=== PATIENT | male | born 1960 | race Caucasian/White ===

== ENCOUNTER 2016-08-23 15:23 | Inpatient (IN) | payer BC ==
[~2016-08-23] VITALS: Ht 177.8 cm; Wt 98.8 kg
[2016-08-23 16:19] LABS: BASO % 0.6 %; BASO ABS # 0.06 K/uL (0-0.2); COMPLETE YES; EOS % 1.6 %; HEMATOCRIT 44.6 % (42-52); IG% 0.2 %; LYMPH % 17.5 %; LYMPH ABS # 1.65 K/uL (1.2-3.4); MEAN CELL VOLUME 83.7 fL (80-100); MEAN CORPUSCULAR HEMOGLOBIN 29.6 pg (25-34); MEAN CORPUSCULAR HGB CONC 35.4 g/dl (32-36); MEAN PLATELET VOLUME 9.5 fL (7.4-10.4); MONO % 8.5 %; NEUT % 71.6 %; PLATELET COUNT 292 K/uL (130-400); RED BLOOD COUNT 5.33 M/uL (4.7-6.1); WHITE BLOOD COUNT 9.42 K/uL (4.8-10.8)
[2016-08-23] MEDS ORDERED: SODIUM CHLORIDE 0.9% 1000ML 1,000 ML IV ONE (16:22)
[2016-08-23] MEDS ORDERED: SODIUM CHLORIDE 0.9% 1000ML 1,000 ML IV STA (16:22)
--- NOTE | 2016-08-23 16:22 | EMERGENCY ROOM VISIT NOTE ---
History Report prepared by Marjibdanni: Niru Leon Under the Supervision of: Dr. Raúl Chapa M.D. First contact with patient: 16:09 Chief Complaint: CHEST PAIN Stated Complaint: CHEST PAIN RADIATING TO BACK History of Present Illness The patient is a 56 year old male who presents to the Emergency Room with complaints of worsening lower chest pain beginning 5 days prior to arrival. The patient states that last night was the worst the pain has been. He notes the pain radiates down into his upper abdomen and around to his back. The patient has been experiencing belching. The patient denies shortness of breath, fever, cough, swelling to lower extremities, bloody stool, or urinary symptoms. Source of History: patient Onset: 5 days [employer] Position: chest (lower) Timing: worsening Associated Symptoms: + abdominal pain, + back pain, No fevers, No SOB, No urinary symptoms Review of Systems See HPI for pertinent positives & negatives. A total of 10 systems reviewed and were otherwise negative. Past Medical & Surgical Medical Problems: (1) Hypertension Old medical records were reviewed. Nurse's notes were reviewed and I agree with. Family History FH: heart disease FHx: cancer Hypertension Social History Smoking Status: Never Smoker Alcohol Use: occasionally Marital Status: Housing Status: lives with family Occupation Status: employed Current/Historical Medications Scheduled Aspirin (Aspirin Ec), 81 MG PO DAILY Lisinopril (Zestril), 40 MG PO DAILY Scheduled PRN Ibuprofen (Advil), 400-600 MG PO Q6H PRN for Pain Allergies Coded Allergies: Cephalexin (Verified Allergy, Severe, HIVES, 08/23/16) Physical Exam Vital Signs Date Time Temp Pulse Resp B/P (MAP) Pulse Ox O2 Delivery O2 Flow Rate FiO2 08/23/16 19:06 64 18 190/106 97 Room Air 08/23/16 17:23 66 18 190/104 99 Room Air 08/23/16 16:27 71 20 184/106 96 Room Air 08/23/16 16:16 69 08/23/16 15:27 36.6 72 18 99 Room Air Physical Exam General: Well developed well nourished in no acute distress middle aged male, breathing comfortably on room air. Normal speech HEENT: Normal cephalic atraumatic. Pupils are equal round and reactive to light. Sclerae anicteric. Extraocular movements are intact. Oropharynx is pink with moist mucous membranes. No swelling of the mouth lips or tongue. Neck: Supple with a midline trachea. No meningeal signs or stiffness, no JVD or bruits. No Stridor. Chest: Clear to auscultation bilaterally. No wheezes or rhonchi. No increased work of breathing. Heart: regular rate and rhythm. Abdomen: Soft, mild to moderate tenderness to right upper and lower quadrants, nondistended without rebound guarding or rigidity. Extremities: No cyanosis clubbing or edema. No calf tenderness or assymetry Spine/Back. Non tender to palpation. No CVA tenderness Skin: Good turgor without rashes. Neurologic exam: Cranial nerves two through 12 are intact. Motor and sensation are intact and symmetrical throughout. Medical Decision & Procedures ER Provider Diagnostic Interpretation: Radiology results as stated below per my review and radiologist interpretation: SINGLE VIEW CHEST CLINICAL HISTORY: Atypical chest pain. FINDINGS: An AP, portable, upright chest radiograph is obtained. No prior studies are available for comparison at the time of dictation. The examination is degraded by portable technique and patient rotation. The heart is mildly enlarged and there is atherosclerotic calcification of the thoracic aorta. There is prominence of the central pulmonary vessels. There are low lung volumes. No airspace consolidation or large pleural effusion is seen. No pneumothorax is identified. The bony thorax is grossly intact. IMPRESSION: 1. Cardiomegaly with prominence of the central pulmonary vessels. This may be related to low lung volumes. Correlate clinically for evidence of mild congestive change. 2. No airspace consolidation or large pleural effusion is identified. Electronically signed by: Noam Ramírez M.D. 08/23/2016 4:41 PM Dictated Date/Time: 08/23/2016 4:[address] ANGIOGRAM OF THE CHEST COMBO; CT ANGIOGRAM OF THE ABDOMEN AND PELVIS CLINICAL HISTORY: Atypical chest pain. Generalized abdominal pain. COMPARISON STUDY: Chest x-ray dated 08/23/2016. TECHNIQUE: Before and following the IV administration of 115 cc of Optiray 320, CT angiogram of the chest chest is performed from the thoracic inlet to the upper abdomen. CT angiogram of the abdomen and pelvis was performed from the lung bases to the proximal femora. Images are reviewed in the axial, sagittal, and coronal planes. 3-D MIPS images are created and assessed. IV contrast was administered without complication. Automated dose control exposure was utilized. CT DOSE: 1677.08 mGycm FINDINGS: CHEST: Thyroid: Imaged portions of the thyroid gland are normal in size and attenuation. Thoracic aorta: No intramural hematoma is seen on the unenhanced series. The thoracic aorta is normal in course and caliber. The aortic arch demonstrates bovine variant anatomy. No dissection is seen. The arch vessels are widely patent. Pulmonary vasculature: The pulmonary trunk is normal in caliber. There are no filling defects identified in the central pulmonary vessels to indicate pulmonary embolus. Note that this examination was not protocoled for evaluation of the pulmonary arteries. Heart: The heart is mildly enlarged and without pericardial effusion. The coronary arteries are calcified. Lungs and pleural spaces: The lungs and pleural spaces are clear noting dependent atelectasis. The trachea and central airways are patent. Mediastinum: There is no mediastinal lymphadenopathy. Mariah: Clear. Axillae: There is no axillary lymphadenopathy. Bony thorax: No destructive bony lesions are identified. ABDOMEN AND PELVIS: Liver: The contrast-enhanced liver is enlarged, measuring 19.4 cm in length. The liver demonstrates diffusely diminished attenuation consistent with hepatic steatosis. There is no intrahepatic biliary ductal dilatation. The main portal veins appear patent. Gallbladder: Unremarkable. Spleen: Normal in size and attenuation noting heterogeneous arterial phase enhancement. Pancreas: Minimal stranding is suggested around the pancreatic head. The pancreas is otherwise normal in appearance. The gland enhances homogeneously and there is no peripancreatic fluid. Adrenal glands: Unremarkable. Kidneys: The contrast enhanced kidneys are normal in size and without hydronephrosis. The kidneys enhance symmetrically. A subcentimeter cortical hypodensity in the left kidney likely represents a cyst but is too small for definitive characterization. Abdominal aorta and iliac arteries: The abdominal aorta is normal in course and caliber noting mild atherosclerotic calcification. No dissection is seen. The iliac arteries bilaterally are widely patent. Major branches of the abdominal aorta: The celiac trunk, superior mesenteric, and inferior mesenteric arteries are widely patent. A replaced left hepatic artery arises from the left gastric artery. The splenic artery is patent. Single bilateral renal arteries are widely patent. Bowel: The small bowel and colon are normal in course and caliber. The appendix is well-visualized and normal. Peritoneum: There is no intraperitoneal free air or abdominal ascites. There is a small fat-containing umbilical hernia. Lymphadenopathy: None. Pelvic viscera: The prostate gland is mildly enlarged, measuring 5.4 cm in transverse diameter. The bladder and seminal vesicles are normal as imaged. Skeletal structures: No destructive bony lesions are seen. IMPRESSION: 1. There is no aneurysm or dissection seen involving the thoracic or abdominal aorta. 2. Mild cardiomegaly. 3. The lungs are clear. 4. Mild stranding is suggested around the pancreatic head. Correlate clinically and with serum lipase levels for evidence of pancreatitis. The pancreas enhances homogeneously and there is no peripancreatic fluid. 5. Unremarkable CT angiogram of the major branches of the abdominal aorta. 6. Hepatomegaly and hepatic steatosis. 7. Additional findings as above. Electronically signed by: Noam Ramírez M.D. 08/23/2016 6:21 PM Dictated Date/Time: 08/23/2016 6:[address] ANGIOGRAM OF THE CHEST COMBO; CT ANGIOGRAM OF THE ABDOMEN AND PELVIS CLINICAL HISTORY: Atypical chest pain. Generalized abdominal pain. COMPARISON STUDY: Chest x-ray dated 08/23/2016. TECHNIQUE: Before and following the IV administration of 115 cc of Optiray 320, CT angiogram of the chest chest is performed from the thoracic inlet to the upper abdomen. CT angiogram of the abdomen and pelvis was performed from the lung bases to the proximal femora. Images are reviewed in the axial, sagittal, and coronal planes. 3-D MIPS images are created and assessed. IV contrast was administered without complication. Automated dose control exposure was utilized. CT DOSE: 1677.08 mGycm FINDINGS: CHEST: Thyroid: Imaged portions of the thyroid gland are normal in size and attenuation. Thoracic aorta: No intramural hematoma is seen on the unenhanced series. The thoracic aorta is normal in course and caliber. The aortic arch demonstrates bovine variant anatomy. No dissection is seen. The arch vessels are widely patent. Pulmonary vasculature: The pulmonary trunk is normal in caliber. There are no filling defects identified in the central pulmonary vessels to indicate pulmonary embolus. Note that this examination was not protocoled for evaluation of the pulmonary arteries. Heart: The heart is mildly enlarged and without pericardial effusion. The coronary arteries are calcified. Lungs and pleural spaces: The lungs and pleural spaces are clear noting dependent atelectasis. The trachea and central airways are patent. Mediastinum: There is no mediastinal lymphadenopathy. Mariah: Clear. Axillae: There is no axillary lymphadenopathy. Bony thorax: No destructive bony lesions are identified. ABDOMEN AND PELVIS: Liver: The contrast-enhanced liver is enlarged, measuring 19.4 cm in length. The liver demonstrates diffusely diminished attenuation consistent with hepatic steatosis. There is no intrahepatic biliary ductal dilatation. The main portal veins appear patent. Gallbladder: Unremarkable. Spleen: Normal in size and attenuation noting heterogeneous arterial phase enhancement. Pancreas: Minimal stranding is suggested around the pancreatic head. The pancreas is otherwise normal in appearance. The gland enhances homogeneously and there is no peripancreatic fluid. Adrenal glands: Unremarkable. Kidneys: The contrast enhanced kidneys are normal in size and without hydronephrosis. The kidneys enhance symmetrically. A subcentimeter cortical hypodensity in the left kidney likely represents a cyst but is too small for definitive characterization. Abdominal aorta and iliac arteries: The abdominal aorta is normal in course and caliber noting mild atherosclerotic calcification. No dissection is seen. The iliac arteries bilaterally are widely patent. Major branches of the abdominal aorta: The celiac trunk, superior mesenteric, and inferior mesenteric arteries are widely patent. A replaced left hepatic artery arises from the left gastric artery. The splenic artery is patent. Single bilateral renal arteries are widely patent. Bowel: The small bowel and colon are normal in course and caliber. The appendix is well-visualized and normal. Peritoneum: There is no intraperitoneal free air or abdominal ascites. There is a small fat-containing umbilical hernia. Lymphadenopathy: None. Pelvic viscera: The prostate gland is mildly enlarged, measuring 5.4 cm in transverse diameter. The bladder and seminal vesicles are normal as imaged. Skeletal structures: No destructive bony lesions are seen. IMPRESSION: 1. There is no aneurysm or dissection seen involving the thoracic or abdominal aorta. 2. Mild cardiomegaly. 3. The lungs are clear. 4. Mild stranding is suggested around the pancreatic head. Correlate clinically and with serum lipase levels for evidence of pancreatitis. The pancreas enhances homogeneously and there is no peripancreatic fluid. 5. Unremarkable CT angiogram of the major branches of the abdominal aorta. 6. Hepatomegaly and hepatic steatosis. 7. Additional findings as above. Electronically signed by: Noam Ramírez M.D. 08/23/2016 6:21 PM Dictated Date/Time: 08/23/2016 6:09 PM Laboratory Results 08/23/16 15:39 Red Blood Count 5.33, Mean Corpuscular Volume 83.7, Mean Corpuscular Hemoglobin 29.6, Mean Corpuscular Hemoglobin Concent 35.4, Mean Platelet Volume 9.5, Neutrophils (%) (Auto) 71.6, Lymphocytes (%) (Auto) 17.5, Monocytes (%) (Auto) 8.5, Eosinophils (%) (Auto) 1.6, Basophils (%) (Auto) 0.6, Neutrophils # (Auto) 6.74, Lymphocytes # (Auto) 1.65, Monocytes # (Auto) 0.80, Eosinophils # (Auto) 0.15, Basophils # (Auto) 0.06 08/23/16 15:39 Test 08/23/16 15:39 08/23/16 17:20 White Blood Count 9.42 K/uL (4.8-10.8) Red Blood Count 5.33 M/uL (4.7-6.1) Hemoglobin 15.8 g/dL (14.0-18.0) Hematocrit 44.6 % (42-52) Mean Corpuscular Volume 83.7 fL (80-100) Mean Corpuscular Hemoglobin 29.6 pg (25-34) Mean Corpuscular Hemoglobin Concent 35.4 g/dl (32-36) Platelet Count 292 K/uL (130-400) Mean Platelet Volume 9.5 fL (7.4-10.4) Neutrophils (%) (Auto) 71.6 % Lymphocytes (%) (Auto) 17.5 % Monocytes (%) (Auto) 8.5 % Eosinophils (%) (Auto) 1.6 % Basophils (%) (Auto) 0.6 % Neutrophils # (Auto) 6.74 K/uL (1.4-6.5) Lymphocytes # (Auto) 1.65 K/uL (1.2-3.4) Monocytes # (Auto) 0.80 K/uL (0.11-0.59) Eosinophils # (Auto) 0.15 K/uL (0-0.5) Basophils # (Auto) 0.06 K/uL (0-0.2) RDW Standard Deviation 37.6 fL (36.4-46.3) RDW Coefficient of Variation 12.4 % (11.5-14.5) Immature Granulocyte % (Auto) 0.2 % Immature Granulocyte # (Auto) 0.02 K/uL (0.00-0.02) D-Dimer 190 ug/L FEU (0-500) Anion Gap 7.0 mmol/L (3-11) Est Creatinine Clear Calc Drug Dose 96.9 ml/min Estimated GFR () 97.1 Estimated GFR (Non- 83.8 BUN/Creatinine Ratio 11.2 (10-20) Calcium Level 9.1 mg/dl (8.5-10.1) Total Bilirubin 0.7 mg/dl (0.2-1) Aspartate Amino Transf (AST/SGOT) 15 U/L (15-37) Alanine Aminotransferase (ALT/SGPT) 31 U/L (12-78) Alkaline Phosphatase 70 U/L (45-117) Troponin I < 0.015 ng/ml (0-0.045) Total Protein 7.3 gm/dl (6.4-8.2) Albumin 3.8 gm/dl (3.4-5.0) Globulin 3.5 gm/dl (2.5-4.0) Albumin/Globulin Ratio 1.1 (0.9-2) Lipase 546 U/L (73-393) Urine Color YELLOW Urine Appearance CLEAR (CLEAR) Urine pH 8.0 (4.5-7.5) Urine Specific [place] 1.009 (1.000-1.030) Urine Protein NEG (NEG) Urine Glucose (UA) NEG (NEG) Urine Ketones NEG (NEG) Urine Occult Blood NEG (NEG) Urine Nitrite NEG (NEG) Urine Bilirubin NEG (NEG) Urine Urobilinogen NEG (NEG) Urine Leukocyte Esterase NEG (NEG) Laboratory studies as stated above per my review. Medications Administered Medications (Trade) Dose Ordered Sig/Kareen Route Start Time Stop Time Status Last Admin Dose Admin Sodium Chloride 1,000 ml @ 999 mls/hr Q1H1M STAT IV 08/23/16 16:22 08/23/16 17:22 DC 08/23/16 16:22 999 MLS/HR Sodium Chloride 1,000 ml @ 200 mls/hr Q5H ONCE IV 08/23/16 16:22 08/23/16 21:21 08/23/16 16:22 200 MLS/HR ECG Indication: chest pain Rate (beats per minute): 70 Rhythm: normal sinus Findings: no acute ischemic change, no ectopy Comparison ECG Date: no prior available ED Course 1614: Past medical records reviewed. The patient was evaluated in room A10, and a complete history and physical examination were performed. 1622: Sodium Chloride 1,000 ml @ 200 mls/hr IV, Sodium Chloride 1,000 ml @ 999 mls/hr IV. 1723: The patient declined pain medication. 1843: I reevaluated the patient and talked at length with the patient and his family about treatment plan. 192: I spoke to Dr. Joao NICHOLSON about the patient. Dr. Joao NICHOLSON will evaluate the patient for further treatment and management. 192: Upon reevaluation, the patient is hemodynamically stable. I discussed the results and treatment plan with the patient. He verbalized agreement of the treatment plan. The patient will be evaluated for further management. Medical Decision Differentials include, but are not limited to; acute coronary syndrome, arrhythmia, infection, electrolyte or metabolic abnormalities. Medication Reconciliation: I attest that I have personally reviewed the patient' s current medication list. Blood Pressure Screening: Patient was found to have a slightly elevated blood pressure due to circumstances. I do not believe that the patient requires hypertension monitoring. This patient comes in as described above he has lower chest/epigastric pain has been going on for a couple days nothing seems to make it better or worse she does appear to be mildly uncomfortable is pacing intermittently however he declines any pain medication. IV access established EKG and multiple blood testing was obtained. He was hydrated IV normal saline. EKG does not suggest acute coronary syndrome or arrhythmia. He has no significant electrolyte or metabolic abnormalities. His lipase is mildly elevated at 595. His blood pressure was elevated while he was here, some of this I think is likely related pain distress. I did a CT angios chest and abdomen to rule out aortic and other pathology. There is no evidence of aortic dissection or aneurysm. There is questionable findings for mild pancreatitis. No other findings seen acutely. Gallbladder appears normal. He has no elevation of LFTs. This may be from a mild pancreatitis of uncertain etiology at this point. I talked the patient length to the strong family cardiac history thus far cardiac work up was unremarkable but a do think he needs to have further workup from a cardiac standpoint and also a GI standpoint. I have consulted the [facility] hospitalist to see him in the emergency department. Consults Time Called: 1916 Consulting Physician: Dr. Joao NICHOLSON Returned Call: [address] Joao NICHOLSON about the patient. Dr. Joao NICHOLSON will evaluate the patient for further treatment and management. Impression Primary Impression: Chest pain Additional Impressions: Epigastric abdominal pain Pancreatitis Scribe Attestation The scribe's documentation has been prepared under my direction and personally reviewed by me in its entirety. I confirm that the note above accurately reflects all work, treatment, procedures, and medical decision making performed by me. Departure Information Dispostion Being Evaluated By Hospitalist Iftikhar Rucker MD (PCP) Problem Qualifiers
[2016-08-23 16:27] LABS: ALT/SGPT 31 U/L (12-78); BLOOD UREA NITROGEN 11 mg/dl (7-18); BUN/CREATININE RATIO 11.2 (10-20); CALCIUM 9.1 mg/dl (8.5-10.1); CARBON DIOXIDE 27 mmol/L (21-32); CHLORIDE 107 mmol/L (98-107); GLUCOSE 84 mg/dl (70-99); POTASSIUM 3.6 mmol/L (3.5-5.1); SODIUM 141 mmol/L (136-145)
[2016-08-23 16:32] LABS: ALB/GLOB RATIO 1.1 (0.9-2); ALKALINE PHOSPHATASE 70 U/L (45-117); AST/SGOT 15 U/L (15-37)
[2016-08-23] MEDS ORDERED: IBUP-1050 PO (16:38)
[2016-08-23] MEDS ORDERED: ASPI81TA28 PO (16:38)
[2016-08-23] MEDS ORDERED: LISI40TA PO (16:38)
--- NOTE | 2016-08-23 16:43 | DIAGNOSTIC IMAGING REPORT ---
SINGLE VIEW CHEST CLINICAL HISTORY: Atypical chest pain. FINDINGS: An AP, portable, upright chest radiograph is obtained. No prior studies are available for comparison at the time of dictation. The examination is degraded by portable technique and patient rotation. The heart is mildly enlarged and there is atherosclerotic calcification of the thoracic aorta. There is prominence of the central pulmonary vessels. There are low lung volumes. No airspace consolidation or large pleural effusion is seen. No pneumothorax is identified. The bony thorax is grossly intact. IMPRESSION: 1. Cardiomegaly with prominence of the central pulmonary vessels. This may be related to low lung volumes. Correlate clinically for evidence of mild congestive change. 2. No airspace consolidation or large pleural effusion is identified. Electronically signed by: Noam Ramírez M.D. 08/23/2016 4:41 PM Dictated Date/Time: 08/23/2016 4:40 PM
[2016-08-23] MEDS ORDERED: OPTIRAY 320 IV PRN (18:00)
--- NOTE | 2016-08-23 18:23 | DIAGNOSTIC IMAGING REPORT ---
CT ANGIOGRAM OF THE CHEST COMBO; CT ANGIOGRAM OF THE ABDOMEN AND PELVIS CLINICAL HISTORY: Atypical chest pain. Generalized abdominal pain. COMPARISON STUDY: Chest x-ray dated 08/23/2016. TECHNIQUE: Before and following the IV administration of 115 cc of Optiray 320, CT angiogram of the chest chest is performed from the thoracic inlet to the upper abdomen. CT angiogram of the abdomen and pelvis was performed from the lung bases to the proximal femora. Images are reviewed in the axial, sagittal, and coronal planes. 3-D MIPS images are created and assessed. IV contrast was administered without complication. Automated dose control exposure was utilized. CT DOSE: 1677.08 mGycm FINDINGS: CHEST: Thyroid: Imaged portions of the thyroid gland are normal in size and attenuation. Thoracic aorta: No intramural hematoma is seen on the unenhanced series. The thoracic aorta is normal in course and caliber. The aortic arch demonstrates bovine variant anatomy. No dissection is seen. The arch vessels are widely patent. Pulmonary vasculature: The pulmonary trunk is normal in caliber. There are no filling defects identified in the central pulmonary vessels to indicate pulmonary embolus. Note that this examination was not protocoled for evaluation of the pulmonary arteries. Heart: The heart is mildly enlarged and without pericardial effusion. The coronary arteries are calcified. Lungs and pleural spaces: The lungs and pleural spaces are clear noting dependent atelectasis. The trachea and central airways are patent. Mediastinum: There is no mediastinal lymphadenopathy. Mariah: Clear. Axillae: There is no axillary lymphadenopathy. Bony thorax: No destructive bony lesions are identified. ABDOMEN AND PELVIS: Liver: The contrast-enhanced liver is enlarged, measuring 19.4 cm in length. The liver demonstrates diffusely diminished attenuation consistent with hepatic steatosis. There is no intrahepatic biliary ductal dilatation. The main portal veins appear patent. Gallbladder: Unremarkable. Spleen: Normal in size and attenuation noting heterogeneous arterial phase enhancement. Pancreas: Minimal stranding is suggested around the pancreatic head. The pancreas is otherwise normal in appearance. The gland enhances homogeneously and there is no peripancreatic fluid. Adrenal glands: Unremarkable. Kidneys: The contrast enhanced kidneys are normal in size and without hydronephrosis. The kidneys enhance symmetrically. A subcentimeter cortical hypodensity in the left kidney likely represents a cyst but is too small for definitive characterization. Abdominal aorta and iliac arteries: The abdominal aorta is normal in course and caliber noting mild atherosclerotic calcification. No dissection is seen. The iliac arteries bilaterally are widely patent. Major branches of the abdominal aorta: The celiac trunk, superior mesenteric, and inferior mesenteric arteries are widely patent. A replaced left hepatic artery arises from the left gastric artery. The splenic artery is patent. Single bilateral renal arteries are widely patent. Bowel: The small bowel and colon are normal in course and caliber. The appendix is well-visualized and normal. Peritoneum: There is no intraperitoneal free air or abdominal ascites. There is a small fat-containing umbilical hernia. Lymphadenopathy: None. Pelvic viscera: The prostate gland is mildly enlarged, measuring 5.4 cm in transverse diameter. The bladder and seminal vesicles are normal as imaged. Skeletal structures: No destructive bony lesions are seen. IMPRESSION: 1. There is no aneurysm or dissection seen involving the thoracic or abdominal aorta. 2. Mild cardiomegaly. 3. The lungs are clear. 4. Mild stranding is suggested around the pancreatic head. Correlate clinically and with serum lipase levels for evidence of pancreatitis. The pancreas enhances homogeneously and there is no peripancreatic fluid. 5. Unremarkable CT angiogram of the major branches of the abdominal aorta. 6. Hepatomegaly and hepatic steatosis. 7. Additional findings as above. Electronically signed by: Noam Ramírez M.D. 08/23/2016 6:21 PM Dictated Date/Time: 08/23/2016 6:09 PM
[2016-08-23 18:40] LABS: URINE APPEARANCE CLEAR (CLEAR); URINE BILIRUBIN NEG (NEG); URINE COLOR YELLOW; URINE NITRITE NEG (NEG); URINE SPECIFIC GRAVITY 1.009 (1.000-1.030); UROBILINOGEN NEG (NEG); ZZUR CULT IF INDIC CLEAN CATCH NO
[2016-08-23 18:50] LABS: MANUAL MICROSCOPIC REQUIRED? NO; REVIEW REQ? NO
[2016-08-23] MEDS ORDERED: ALUMINUM/MAGNESIUM/SIMETH (MAALOX MAX) 30 ML UDC PO PRN (20:30)
[2016-08-23] MEDS ORDERED: POLYETHYLENE (MIRALAX) 17 GM PACK PO PRN (20:30)
[2016-08-23] MEDS ORDERED: ZOLPIDEM TARTRATE 5 MG TAB PO PRN (20:30)
[2016-08-23] MEDS ORDERED: ONDANSETRON INJ 2 MG/ML 2 ML VIAL IV PRN (20:30)
[2016-08-23] MEDS ORDERED: MAGNESIUM HYDROXIDE SUSP 30 ML UDC PO PRN (20:30)
[2016-08-23] MEDS ORDERED: HYDROmorphone INJ 0.5 MG/0.5 ML SYR IV PRN (20:30)
--- NOTE | 2016-08-23 20:56 | History and Physical ---
History & Physical Date & Time of Service: Aug 23, 2016 at 20:12 Chief Complaint: Chest Pain Radiating To Back Primary Care Physician: Iftikhar Chand MD History of Present Illness Source: patient 56 y/o M Hx HTN. Pt developed abdominal pain banding across his upper quadrants and radiating to his back. He describes nausea without vomiting. Denies CP, SOB, diaphoresis. A CT angiogram was obtained in the ER to rule out dissection. No dissection was apparent however there is stranding around the pancreatic head which is conssitent with acute pancreatitis. The pts lipase in addition is elevated. Past Medical/Surgical History Medical Problems: (1) Hypertension Status: Chronic Family History FH: heart disease FHx: cancer Hypertension Father age 53 owing to an [place] Mother due to Colon CA Social History Pt has 1-2 beers HS, he limits his calorie intake and is active within his job. He owns a [employer]. He does not smoke Smoking Status: Never Smoker Marital Status: Occupational Status: employed Allergies Coded Allergies: Cephalexin (Verified Allergy, Severe, HIVES, 08/23/16) Home Medications Scheduled Aspirin (Aspirin Ec), 81 MG PO DAILY Lisinopril (Zestril), 40 MG PO DAILY Scheduled PRN Ibuprofen (Advil), 400-600 MG PO Q6H PRN for Pain Review of Systems Constitutional: No fever, No chills, No sweats Eyes: No worsening of vision ENT: No hearing loss, No unusual epistaxis, No nasal symptoms Respiratory: No cough, No sputum, No wheezing Cardiovascular: No chest pain, No orthopnea, No PND Abdomen: + pain, + nausea, No vomiting, No diarrhea, No constipation Musculoskeletal: No joint pain Genitourinary - Male: No hematuria, No dysuria, No urinary frequency Neurologic: No memory loss, No paralysis, No weakness Psychiatric: No depression symptoms Endocrine: No fatigue Hematologic / Lymphatic: No abnormal bleeding/bruising Integumentary: No rash Allergic / Immunologic: No environmental allergies Physical Exam Vital Signs Date Time Temp Pulse Resp B/P (MAP) Pulse Ox O2 Delivery O2 Flow Rate FiO2 08/23/16 19:06 64 18 190/106 97 Room Air 08/23/16 17:23 66 18 190/104 99 Room Air 08/23/16 16:27 71 20 184/106 96 Room Air 08/23/16 16:16 69 08/23/16 15:27 36.6 72 18 99 Room Air General Appearance: WD/WN, no apparent distress Head: normocephalic Eyes: normal inspection ENT: normal ENT inspection Neck: supple, no JVD Respiratory/Chest: chest non-tender, lungs clear, normal breath sounds Cardiovascular: regular rate, rhythm, no edema, no gallop, no JVD, no murmur, normal peripheral pulses Abdomen/GI: normal bowel sounds, soft, + tenderness Back: normal inspection, no CVA tenderness Extremities/Musculoskelatal: normal inspection, no calf tenderness, normal capillary refill, no pedal edema, normal range of motion Neurologic/Psych: town [place] II-XII nml as tested, no motor/sensory deficits, alert Skin: normal color, warm/dry, no rash Diagnostics Laboratory Results Results Past 24 Hours Test 08/23/16 15:39 08/23/16 17:20 Range/Units White Blood Count 9.42 4.8-10.8 K/uL Red Blood Count 5.33 4.7-6.1 M/uL Hemoglobin 15.8 14.0-18.0 g/dL Hematocrit 44.6 42-52 % Mean Corpuscular Volume 83.7 80-100 fL Mean Corpuscular Hemoglobin 29.6 25-34 pg Mean Corpuscular Hemoglobin Concent 35.4 32-36 g/dl Platelet Count 292 130-400 K/uL Mean Platelet Volume 9.5 7.4-10.4 fL Neutrophils (%) (Auto) 71.6 % Lymphocytes (%) (Auto) 17.5 % Monocytes (%) (Auto) 8.5 % Eosinophils (%) (Auto) 1.6 % Basophils (%) (Auto) 0.6 % Neutrophils # (Auto) 6.74 1.4-6.5 K/uL Lymphocytes # (Auto) 1.65 1.2-3.4 K/uL Monocytes # (Auto) 0.80 0.11-0.59 K/uL Eosinophils # (Auto) 0.15 0-0.5 K/uL Basophils # (Auto) 0.06 0-0.2 K/uL RDW Standard Deviation 37.6 36.4-46.3 fL RDW Coefficient of Variation 12.4 11.5-14.5 % Immature Granulocyte % (Auto) 0.2 % Immature Granulocyte # (Auto) 0.02 0.00-0.02 K/uL D-Dimer 190 0-500 ug/L FEU Sodium Level 141 136-145 mmol/L Potassium Level 3.6 3.5-5.1 mmol/L Chloride Level 107 98-107 mmol/L Carbon Dioxide Level 27 21-32 mmol/L Anion Gap 7.0 3-11 mmol/L Blood Urea Nitrogen 11 7-18 mg/dl Creatinine 1.00 0.60-1.40 mg/dl Est Creatinine Clear Calc Drug Dose 96.9 ml/min Estimated GFR () 97.1 Estimated GFR (Non- 83.8 BUN/Creatinine Ratio 11.2 10-20 Random Glucose 84 70-99 mg/dl Calcium Level 9.1 8.5-10.1 mg/dl Total Bilirubin 0.7 0.2-1 mg/dl Aspartate Amino Transf (AST/SGOT) 15 15-37 U/L Alanine Aminotransferase (ALT/SGPT) 31 12-78 U/L Alkaline Phosphatase 70 45-117 U/L Troponin I < 0.015 0-0.045 ng/ml Total Protein 7.3 6.4-8.2 gm/dl Albumin 3.8 3.4-5.0 gm/dl Globulin 3.5 2.5-4.0 gm/dl Albumin/Globulin Ratio 1.1 0.9-2 Lipase 546 73-393 U/L Urine Color YELLOW Urine Appearance CLEAR CLEAR Urine pH 8.0 4.5-7.5 Urine Specific [place] 1.009 1.000-1.030 Urine Protein NEG NEG Urine Glucose (UA) NEG NEG Urine Ketones NEG NEG Urine Occult Blood NEG NEG Urine Nitrite NEG NEG Urine Bilirubin NEG NEG Urine Urobilinogen NEG NEG Urine Leukocyte Esterase NEG NEG Diagnostic Radiology CT angio - dissection study 1. There is no aneurysm or dissection seen involving the thoracic or abdominal aorta. 2. Mild cardiomegaly. 3. The lungs are clear. 4. Mild stranding is suggested around the pancreatic head. Correlate clinically and with serum lipase levels for evidence of pancreatitis. The pancreas enhances homogeneously and there is no peripancreatic fluid. 5. Unremarkable CT angiogram of the major branches of the abdominal aorta. 6. Hepatomegaly and hepatic steatosis. EKG NSR Normal EKG Impression Assessment and Plan 56 y/o M Hx HTN. Pt developed abdominal pain banding across his upper quadrants and radiating to his back. He describes nausea without vomiting. Denies CP, SOB, diaphoresis. A CT angiogram was obtained in the ER to rule out dissection. No dissection was apparent however there is stranding around the pancreatic head which is consistent with acute pancreatitis. The pts lipase in addition is elevated. 1) Pancreatitis - IVF, Analgesics, antiemetics, NPO - reassess AM as it appears relatively mild at present. Etiology is not clear since there is no evidence of biliary obstruction. He does have a fatty liver however, so that we will check a triglyceride level. 2) HTN - cont Lisinopril 3) Hepatosteatosis - may need nutritional counseling and has been advised on weight loss although he states he already remains active and limits calorie intake. Full code - Heparin prophylaxis - total time for this admit including review of labs, meds, imaging - discussion with pt and ER attending - 33 min Level of Care Med/Surg Resuscitation Status FULL RESUSCITATION VTE Prophylaxis Given or contraindicated: Unfractionated heparin SQ
[2016-08-23 21:34] LABS: PROTHROMBIN TIME (PATIENT) 10.7 SECONDS (9.0-12.0)
[2016-08-23 21:54] VITALS: BP 206/106; PULSE 66; TEMP 36.9; O2SAT 98; Ht 177.8 cm; Wt 98.8 kg
[2016-08-23] MEDS: D5NSS + 20MEQ KCL 1,000 ML IV SCH (22:33)
[2016-08-23] MEDS: LISINOPRIL 40 MG TAB PO SCH (22:34)
[2016-08-23] MEDS: ACETAMINOPHEN 325 MG TAB PO PRN (22:36)
[2016-08-23 23:34] VITALS: BP 188/88; PULSE 58; TEMP 36.9; O2SAT 97
[2016-08-24] VITALS (10 sets, daily range): BP systolic 150–188; BP diastolic 76–98; PULSE 54–86; TEMP 36.4–37; O2SAT 97–99
[2016-08-24] MEDS: D5NSS + 20MEQ KCL 1,000 ML IV SCH ×4 (04:37→23:57)
[2016-08-24] MEDS: HEPARIN SOD 5000 UNIT/0.5 ML CARP SQ SCH ×3 (06:00→21:55)
[2016-08-24] MEDS: ASPIRIN 81 MG ECTAB PO SCH (08:32)
[2016-08-24] MEDS: ACETAMINOPHEN 325 MG TAB PO PRN ×2 (08:36→21:58)
[2016-08-24] MEDS: LISINOPRIL 40 MG TAB PO SCH (08:43)
[2016-08-24] MEDS ORDERED: NURSING VERBAL MED ORDER ONE ×2 (11:30→17:45)
[2016-08-24] MEDS ORDERED: D5NSS + 20MEQ KCL 1,000 ML IV SCH (12:00)
--- NOTE | 2016-08-24 12:54 | Progress Note ---
Subjective Date of Service: Aug 24, 2016. Subjective Pt evaluation today including: conversation w/ patient Pt is feeling improved, but still with bloating and mild abd pain around his epigastric region. Now with more of a pressure to his back. No pain. Has been tolerating ice chips. No SOB. No further nausea and has not had emesis with any of this issue. Pt denies fever, chest pain, c/d, LE pain or swelling. 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 He has been able to work from here and has been doing so, but is concerned about being in the hospital. Pt states he has always had high blood pressure, first noted as a teenager. He denies hx of renal US. States even when he was running regularly, his weight has stayed the same and his BP was not much better. He states his BP has not improved much on lisinopril and it was just increased about 2 weeks ago. He notes that the BP readings here are similar to prior to increase. His is a vegan, so he while he does not eat quite a healthy as she does, he does consider himself a healthy eater. He does eat pretzels with salt as a regular snack. One cup of coffee in the morning and another caffeine beverage in the afternoon. ROS reviewed and otherwise neg. Problem List Medical Problems: (1) Chest pain Status: Acute (2) Epigastric abdominal pain Status: Acute (3) Pancreatitis Status: Acute Objective Vital Signs Date Time Temp Pulse Resp B/P (MAP) Pulse Ox O2 Delivery O2 Flow Rate FiO2 08/24/16 11:23 36.4 58 18 188/86 (120) 98 Room Air 182/96 (124) 08/24/16 10:20 36.5 61 20 179/94 (122) 99 Room Air 08/24/16 08:57 36.6 66 20 179/95 (123) 99 Room Air 08/24/16 07:45 97 Room Air 08/24/16 07:29 36.7 64 18 163/91 (115) 97 Room Air 08/24/16 03:46 36.7 54 18 150/81 (104) 97 Room Air 08/24/16 00:00 Room Air 08/23/16 23:34 36.9 58 18 188/88 (121) 97 Room Air 08/23/16 21:54 36.9 66 18 206/106 98 Room Air 08/23/16 21:13 79 18 185/95 99 08/23/16 20:47 79 18 185/95 99 Room Air 08/23/16 20:43 69 08/23/16 19:06 64 18 190/106 97 Room Air 08/23/16 17:23 66 18 190/104 99 Room Air 08/23/16 16:27 71 20 184/106 96 Room Air 08/23/16 16:16 69 08/23/16 15:27 36.6 72 18 99 Room Air Physical Exam General Appearance: WD/WN, no apparent distress Eyes: normal inspection, EOMI ENT: hearing grossly normal Neck: supple Respiratory/Chest: normal breath sounds, no respiratory distress Cardiovascular: regular rate, rhythm, no edema Abdomen: non tender, soft, + distended Extremities: non-tender, no pedal edema Neurologic/Psychiatric: alert, normal mood/affect Skin: normal color, warm/dry Laboratory Results Last 24 Hours Test 08/23/16 15:39 08/23/16 17:20 White Blood Count 9.42 K/uL Red Blood Count 5.33 M/uL Hemoglobin 15.8 g/dL Hematocrit 44.6 % Mean Corpuscular Volume 83.7 fL Mean Corpuscular Hemoglobin 29.6 pg Mean Corpuscular Hemoglobin Concent 35.4 g/dl Platelet Count 292 K/uL Mean Platelet Volume 9.5 fL Neutrophils (%) (Auto) 71.6 % Lymphocytes (%) (Auto) 17.5 % Monocytes (%) (Auto) 8.5 % Eosinophils (%) (Auto) 1.6 % Basophils (%) (Auto) 0.6 % Neutrophils # (Auto) 6.74 K/uL Lymphocytes # (Auto) 1.65 K/uL Monocytes # (Auto) 0.80 K/uL Eosinophils # (Auto) 0.15 K/uL Basophils # (Auto) 0.06 K/uL RDW Standard Deviation 37.6 fL RDW Coefficient of Variation 12.4 % Immature Granulocyte % (Auto) 0.2 % Immature Granulocyte # (Auto) 0.02 K/uL Prothrombin Time 10.7 SECONDS Prothromb Time International Ratio 1.0 Activated Partial Thromboplast Time 26.5 SECONDS Partial Thromboplastin Ratio 1.0 D-Dimer 190 ug/L FEU Sodium Level 141 mmol/L Potassium Level 3.6 mmol/L Chloride Level 107 mmol/L Carbon Dioxide Level 27 mmol/L Anion Gap 7.0 mmol/L Blood Urea Nitrogen 11 mg/dl Creatinine 1.00 mg/dl Est Creatinine Clear Calc Drug Dose 96.9 ml/min Estimated GFR () 97.1 Estimated GFR (Non- 83.8 BUN/Creatinine Ratio 11.2 Random Glucose 84 mg/dl Calcium Level 9.1 mg/dl Total Bilirubin 0.7 mg/dl Aspartate Amino Transf (AST/SGOT) 15 U/L Alanine Aminotransferase (ALT/SGPT) 31 U/L Alkaline Phosphatase 70 U/L Troponin I < 0.015 ng/ml Total Protein 7.3 gm/dl Albumin 3.8 gm/dl Globulin 3.5 gm/dl Albumin/Globulin Ratio 1.1 Triglycerides Level 210 mg/dl Lipase 546 U/L Urine Color YELLOW Urine Appearance CLEAR Urine pH 8.0 Urine Specific [place] 1.009 Urine Protein NEG Urine Glucose (UA) NEG Urine Ketones NEG Urine Occult Blood NEG Urine Nitrite NEG Urine Bilirubin NEG Urine Urobilinogen NEG Urine Leukocyte Esterase NEG Assessment and Plan 56 y/o M Hx HTN. Pt developed abdominal pain banding across his upper quadrants and radiating to his back. He describes nausea without vomiting. Denies CP, SOB, diaphoresis. A CT angiogram was obtained in the ER to rule out dissection. No dissection was apparent however there is stranding around the pancreatic head which is consistent with acute pancreatitis. Pancreatitis - IVF, Analgesics, antiemetics, NPO --improving Noted on CT AP, lipase mildly elevated TG are elevated, although I am not certain it is to a level that would cause pancreatitis GB US pending HTN - labile, cont Lisinopril Hx of HTN since a teenager, but has not had any renal imaging done Renal US pending Hepatosteatosis - Ongoing dietary discussions, denies heavy fat diet If pt does well and abd pain/bloating continue to resolve, will advance diet to clears Full code - Heparin prophylaxis - total time for this admit including review of labs, meds, imaging - discussion with pt and ER attending - 33 min
--- NOTE | 2016-08-24 13:48 | Hospitalist Progress Note ---
Hospitalist Progress Note Date of Service Aug 24, 2016. (Yasmany Downs,P.A.) Subjective Pt evaluation today including: conversation w/ patient, physical exam, chart review, lab review, review of studies, review of inpatient medication list Mr. Barclay is a 56-year-old white male with a history of longstanding hypertension who was admitted with an acute pancreatitis after presenting with mid epigastric/abdominal pain which radiated through to his back. He was noted to have stranding around pancreas on CT scan, and he has an elevated lipase level. At the present time -- the patient's pain is improved, although it has not resolved. He still has some pressure through to his back. He has not had any nausea or vomiting. He is tolerating ice chips without difficulty. Patient denies any fevers, chills, or night sweats. Patient's blood pressure remains very labile. He states that he had elevated blood pressure as a teenager. He does not maintain a low-sodium diet, and he is compliant with his Lisinopril. Patient denies any chest pain, heaviness, tightness, or pressure. He denies any shortness of breath, orthopnea, PND, or dyspnea on exertion. No palpitations, syncope, or near syncope. 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 (Yasmany Downs,P.A.) Medications Current Inpatient Medications Medications (Trade) Dose Ordered Sig/Kareen Route Start Time Stop Time Status Last Admin Dose Admin Ioversol (Optiray 320) 115 ml UD PRN IV 08/23/16 18:00 08/27/16 17:59 Heparin Sodium (Porcine) (Heparin Sq 5000 Unit/0.5ml) 5,000 unit Q8H SQ 08/24/16 06:00 09/23/16 05:59 Acetaminophen (Tylenol Tab) 650 mg Q4H PRN PO 08/23/16 20:30 09/22/16 20:29 08/24/16 08:36 650 MG Al Hydrox/Mg Hydrox/Simethicone (Maalox Max Susp) 15 ml Q4H PRN PO 08/23/16 20:30 09/22/16 20:29 Magnesium Hydroxide (Milk Of Magnesia Susp) 30 ml Q6H PRN PO 08/23/16 20:30 09/22/16 20:29 Polyethylene (Miralax Powder Packet) 17 gm DAILY PRN PO 08/23/16 20:30 09/22/16 20:29 Zolpidem Tartrate (Ambien Tab) 5 mg HSZ PRN PO 08/23/16 20:30 09/22/16 20:29 Ondansetron HCl (Zofran Inj) 4 mg Q6H PRN IV 08/23/16 20:30 09/22/16 20:29 Hydromorphone HCl (Dilaudid Inj) 0.5 mg Q3H PRN IV 08/23/16 20:30 09/06/16 20:29 Aspirin (Ecotrin Tab) 81 mg DAILY PO 08/24/16 09:00 09/23/16 08:59 08/24/16 08:32 81 MG Lisinopril (Zestril Tab) 40 mg DAILY PO 08/24/16 09:00 09/23/16 08:59 08/24/16 08:43 40 MG Potassium Chloride/Dextrose/ Sod Cl 1,000 ml @ 150 mls/hr Q6H40M IV 08/24/16 12:00 09/23/16 11:59 08/24/16 11:50 150 MLS/HR (Yasmany Downs.,P.A.) Objective Vital Signs Date Time Temp Pulse Resp B/P (MAP) Pulse Ox O2 Delivery O2 Flow Rate FiO2 08/24/16 11:23 36.4 58 18 188/86 (120) 98 Room Air 182/96 (124) 08/24/16 10:20 36.5 61 20 179/94 (122) 99 Room Air 08/24/16 08:57 36.6 66 20 179/95 (123) 99 Room Air 08/24/16 07:45 97 Room Air 08/24/16 07:29 36.7 64 18 163/91 (115) 97 Room Air 08/24/16 03:46 36.7 54 18 150/81 (104) 97 Room Air 08/24/16 00:00 Room Air 08/23/16 23:34 36.9 58 18 188/88 (121) 97 Room Air 08/23/16 21:54 36.9 66 18 206/106 98 Room Air 08/23/16 21:13 79 18 185/95 99 08/23/16 20:47 79 18 185/95 99 Room Air 08/23/16 20:43 69 08/23/16 19:06 64 18 190/106 97 Room Air 08/23/16 17:23 66 18 190/104 99 Room Air 08/23/16 16:27 71 20 184/106 96 Room Air 08/23/16 16:16 69 08/23/16 15:27 36.6 72 18 99 Room Air (Yasmany Downs.,P.A.) Physical Exam Notes: General: Patient in no acute distress. HEENT: Head is atraumatic, normocephalic. EOMs intact. Sclerae anicteric. Facies symmetric. No perioral cyanosis. Neck: No thyromegaly, adenopathy, or JVD. Carotid upstrokes +2 bilaterally without bruits. JVP is at the level of the clavicle sitting upright. Chest and Lungs: Clear to auscultation throughout all lung gibbs, no wheezes, rales, or rhonchi. CVS: S1 and S2 are regular without murmurs, gallops, or rubs. PMI is nondisplaced. No lifts, heaves, or thrills. No abdominal aortic or renal bruits. Abdominal Exam: Bowel sounds present. Tender to palpation in the mid- epigastrum. No guarding or rigidity noted. Extremities: No clubbing, cyanosis, or edema. Intact posterior tibial and radial pulses bilaterally. Neurologic Exam: Patient is awake, alert, and oriented. Pleasant and cooperative. Answers questions appropriately. Speech is clear. Normal movement in all 4 extremities. Gait pattern is unremarkable. (Yasmany Downs.,P.A.) Laboratory Results Last 24 Hours Test 08/23/16 15:39 08/23/16 17:20 White Blood Count 9.42 K/uL Red Blood Count 5.33 M/uL Hemoglobin 15.8 g/dL Hematocrit 44.6 % Mean Corpuscular Volume 83.7 fL Mean Corpuscular Hemoglobin 29.6 pg Mean Corpuscular Hemoglobin Concent 35.4 g/dl Platelet Count 292 K/uL Mean Platelet Volume 9.5 fL Neutrophils (%) (Auto) 71.6 % Lymphocytes (%) (Auto) 17.5 % Monocytes (%) (Auto) 8.5 % Eosinophils (%) (Auto) 1.6 % Basophils (%) (Auto) 0.6 % Neutrophils # (Auto) 6.74 K/uL Lymphocytes # (Auto) 1.65 K/uL Monocytes # (Auto) 0.80 K/uL Eosinophils # (Auto) 0.15 K/uL Basophils # (Auto) 0.06 K/uL RDW Standard Deviation 37.6 fL RDW Coefficient of Variation 12.4 % Immature Granulocyte % (Auto) 0.2 % Immature Granulocyte # (Auto) 0.02 K/uL Prothrombin Time 10.7 SECONDS Prothromb Time International Ratio 1.0 Activated Partial Thromboplast Time 26.5 SECONDS Partial Thromboplastin Ratio 1.0 D-Dimer 190 ug/L FEU Sodium Level 141 mmol/L Potassium Level 3.6 mmol/L Chloride Level 107 mmol/L Carbon Dioxide Level 27 mmol/L Anion Gap 7.0 mmol/L Blood Urea Nitrogen 11 mg/dl Creatinine 1.00 mg/dl Est Creatinine Clear Calc Drug Dose 96.9 ml/min Estimated GFR () 97.1 Estimated GFR (Non- 83.8 BUN/Creatinine Ratio 11.2 Random Glucose 84 mg/dl Calcium Level 9.1 mg/dl Total Bilirubin 0.7 mg/dl Aspartate Amino Transf (AST/SGOT) 15 U/L Alanine Aminotransferase (ALT/SGPT) 31 U/L Alkaline Phosphatase 70 U/L Troponin I < 0.015 ng/ml Total Protein 7.3 gm/dl Albumin 3.8 gm/dl Globulin 3.5 gm/dl Albumin/Globulin Ratio 1.1 Triglycerides Level 210 mg/dl Lipase 546 U/L Urine Color YELLOW Urine Appearance CLEAR Urine pH 8.0 Urine Specific [place] 1.009 Urine Protein NEG Urine Glucose (UA) NEG Urine Ketones NEG Urine Occult Blood NEG Urine Nitrite NEG Urine Bilirubin NEG Urine Urobilinogen NEG Urine Leukocyte Esterase NEG (Yasmany Downs.,P.A.) Diagnostic Results (Yasmany Downs.,P.A.) Assessment and Plan (1) Pancreatitis (2) Hypertension 1. Acute Pancreatitis: -- Continue IVF's -- Continue analgesics as needed. -- Symptoms are improving and patient is anxious to be discharged. -- Explained the risks of being discharged prematurely -- including dehydration , poor oral intake, nausea / vomiting / worsening symptoms if he tries to eat to soon. -- Consider progressing diet today to see if he tolerates it.....I will discuss with Dr. Peterson. -- No evidence of gall bladder disease on CT scan. Consider gall bladder ultrasound - if that's negative would consider HIDA to rule out atonic gall bladder. Continued [facility] [place] stay due to: inadequate po fluid intake Discharge planning: home (Yasmany Downs.,P.A.) Reviewed: Pt Seen/Exam by Me (Monet Peterson, ) History See my note for details. (Monet Peterson, ) Assessment/Plan 56 y/o M Hx HTN. Pt developed abdominal pain banding across his upper quadrants and radiating to his back. He describes nausea without vomiting. Denies CP, SOB, diaphoresis. A CT angiogram was obtained in the ER to rule out dissection. No dissection was apparent however there is stranding around the pancreatic head which is consistent with acute pancreatitis. Pancreatitis - IVF, Analgesics, antiemetics, NPO --improving Noted on CT AP, lipase mildly elevated TG are elevated, although I am not certain it is to a level that would cause pancreatitis GB US pending HTN - labile, cont Lisinopril Hx of HTN since a teenager, but has not had any renal imaging done Renal US pending Hepatosteatosis - Ongoing dietary discussions, denies heavy fat diet If pt does well and abd pain/bloating continue to resolve, will advance diet to clears Full code - Heparin prophylaxis - total time for this admit including review of labs, meds, imaging - discussion with pt and ER attending - 33 min (Monet Peterson, )
--- NOTE | 2016-08-24 16:14 | DIAGNOSTIC IMAGING REPORT ---
BILIARY ULTRASOUND CLINICAL HISTORY: pancreatitis COMPARISON STUDY: CT scan dated 08/23/2016 FINDINGS: The pancreas was nonvisualized. There is no evidence of right-sided hydronephrosis. No gallstones are visualized. There is no gallbladder wall thickening and no evidence of pericholecystic fluid. There is no ductal dilatation. The common bile duct measures 4 mm. There is a ringdown artifact in the gallbladder consistent with adenomyomatosis. There are no focal hepatic masses. IMPRESSION: 1. Small ringdown artifact within the gallbladder, consistent with adenomyomatosis. Otherwise ultrasonographically normal gallbladder. No calculi identified. 2. No hepatic masses 3. No evidence of ductal dilatation 4. Nondiagnostic evaluation of the pancreas Electronically signed by: Fercho Hester M.D. 08/24/2016 4:13 PM Dictated Date/Time: 08/24/2016 4:11 PM
--- NOTE | 2016-08-24 16:17 | DIAGNOSTIC IMAGING REPORT ---
RENAL ARTERY DUPLEX ULTRASOUND CLINICAL HISTORY: Uncontrolled hypertension COMPARISON STUDY: CT scan dated 08/23/2016 FINDINGS: The right kidney measures 12.4 cm in length. The left kidney measured 14.2 cm in length. The renal veins were patent. The peak systolic velocity within the right renal artery was 104 cm/s. Peak systolic velocity within the left renal artery was 108 cm/s. The peak systolic velocity within the aorta was 121 cm/s. IMPRESSION: No evidence of renal artery stenosis. Electronically signed by: Fercho Hester M.D. 08/24/2016 4:15 PM Dictated Date/Time: 08/24/2016 4:13 PM
[2016-08-24] MEDS ORDERED: HydrALAZINE HCL 20 MG/ML VIAL IV. SCH (17:45)
[2016-08-25] VITALS: O2SAT 98
[2016-08-25] MEDS: HEPARIN SOD 5000 UNIT/0.5 ML CARP SQ SCH (05:54)
[2016-08-25] MEDS: D5NSS + 20MEQ KCL 1,000 ML IV SCH (05:54)
[2016-08-25 07:17] VITALS: BP_SYST 172; BP_SYST 187; BP_DIAS 78; BP_DIAS 89; PULSE 69; TEMP 37; O2SAT 97
[2016-08-25 07:45] VITALS: O2SAT 97
[2016-08-25] MEDS: LISINOPRIL 40 MG TAB PO SCH (08:10)
[2016-08-25] MEDS: ASPIRIN 81 MG ECTAB PO SCH (08:10)
[2016-08-25 09:30] VITALS: BP 168/96; PULSE 74; O2SAT 97
--- NOTE | 2016-08-25 11:24 | Discharge Instructions ---
Discharge Instructions Date of Service Aug 25, 2016. Admission Reason for Admission: Pancreatitis Discharge Discharge Diagnosis / Problem: Acute pancreatitis Discharge Goals Goal(s): Decrease discomfort, Improve function, Increase independence Activity Recommendations Activity Limitations: resume your previous activity . Instructions / Follow-Up Instructions / Follow-Up You can advance your diet slowly at home You should follow up with Dr. Rocha for your blood pressure and any return of abdominal pain, nausea, or bloating. Current Hospital Diet Patient's current hospital diet: Full Liquid Diet Discharge Diet Recommended Diet: Full Liquid Diet, Low Fat Diet (You should avoid greasy, fried foods, high sugar foods) Pending Studies Studies pending at discharge: no Laboratory Results Lipid Panel Test 08/23/16 15:39 Range/Units Triglycerides Level 210 H 0-150 mg/dl Medical Emergencies . Who to Call and When: Medical Emergencies: If at any time you feel your situation is an emergency, please call 911 immediately. . Non-Emergent Contact Non-Emergency issues call your: Primary Care Provider . . "Provider Documentation" section prepared by Monet Peterson. . VTE Core Measure Inpt VTE Proph given/why not?: Unfractionated heparin SQ
--- NOTE | 2016-08-25 11:26 | Discharge Summary ---
Discharge Summary Date of Service Aug 25, 2016. Discharge Summary Admission Date: Aug 23, 2016 at 20:41 Discharge Date: Aug 25, 2016 Discharge Disposition: Home Principal Diagnosis: Acute pancreatitis Problems/Secondary Diagnoses: HTN Medication Reconciliation Continued Medications: Aspirin (Aspirin Ec) 81 Mg Tab 81 MG PO DAILY Ibuprofen (Advil) 200 Mg Tab 400-600 MG PO Q6H PRN for Pain, TAB Lisinopril (Zestril) 40 Mg Tab 40 MG PO DAILY, TAB Discharge Exam Pt is doing well. He has been tolerating clears and then full liquid diet without issue. No further abd pain. No nausea or emesis. Bloating is decreased and he notes a large difference when he put on his shorts this AM. Pt denies fever, SOB, chest pain, LE pain or swelling. ROS reviewed and negative. Physical Exam: General Appearance: WD/WN, no apparent distress Eyes: normal inspection ENT: hearing grossly normal Neck: supple Respiratory/Chest: normal breath sounds, no respiratory distress Cardiovascular: regular rate, rhythm, no edema Abdomen / GI: non tender, soft Extremities: no calf tenderness, no pedal edema Neurologic/Psychiatric: alert, oriented x 3 Skin: normal color, warm/dry Hospital Course 56 y/o M Hx HTN. Pt developed abdominal pain banding across his upper quadrants and radiating to his back. He describes nausea without vomiting. Denies CP, SOB, diaphoresis. A CT angiogram was obtained in the ER to rule out dissection. No dissection was apparent however there is stranding around the pancreatic head which is consistent with acute pancreatitis. Pancreatitis - IVF, Analgesics, antiemetics, NPO initially however pt felt well enough to attempt clears last night. This was tolerated and pt advance to full liquid diet without issue. 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 Advised to increase diet gradually and to avoid greasy/fried/high fat/high sugar or carb foods/alcohol until he is feeling completely improved Noted on CT AP, lipase mildly elevated at 546 on admission GB US neg Pancreas is otherwise neg on CT, unable to be visualized on GB US TG are elevated at 210, although this does seem like a somewhat low level to cause acute pancreatitis. Possible exacerbated by slight alcohol intake and fatty foods Will hold on rx tx for this for now as pt would like to try further dietary modifications Pt does not take medications known to cause pancreatitis, denies (and does not dispute) heavy alcohol use over 1-2 beers per evening (rarely has a second beer) No hx of prior episodes and no FH of pancreatitis Could consider autoimmune testing if recurrent episodes, however given mild nature of this episode will hold on testing. Discussed with pt HTN - labile, cont Lisinopril States his usual BP is in the 160s systolic Could not given metoprolol as HR is low 60s Hydralazine IV did not improve Hx of HTN since a teenager, but has not had any renal imaging done Renal US neg PCP had just increased lisinopril less than 2 weeks ago, will hold on further changes at this time and pt to f/u with PCP for further modifications Hepatosteatosis - Ongoing dietary discussions, denies heavy fat diet is vegan and therefore they eat a fairly healthy diet, although pt states he does not adhere to a full vegan diet Total Time Spent: Greater than 30 minutes This includes examination of the patient, discharge planning, medication reconciliation, and communication with other providers. Discharge Instructions Please refer to the electronic Patient Visit Report (Discharge Instructions) for additional information. Follow-Up Dr. Chand as scheduled prior Additional Copies To Iftikhar Chand MD
[2016-08-25] MEDS ORDERED: ONDA4TAB65 PO (11:28)
[2016-08-25] MEDS ORDERED: OXYC2.5T4 PO (11:28)
[2016-08-25 11:37] VITALS: BP 119/68; PULSE 85; TEMP 36.8; O2SAT 97
[2016-08-25 11:39] VITALS: BP 119/68; PULSE 85; TEMP 36.8; O2SAT 97
== END 2016-08-25 12:41 | disposition home or self-care (01) | DRG 440 ==
LOC: C.EDB 15:25 → C.MED 20:41 → CANRESERV 20:57 → ENRESERV 20:57
PROVIDERS: ADMIT Internal Medicine; ATTEND Family Medicine
DX: K85.90 Acute pancreatitis without necrosis or infection, unspecified (principal); K76.0 Fatty (change of) liver, not elsewhere classified; I10 Essential (primary) hypertension; Z79.82 Long term (current) use of aspirin; Z79.899 Other long term (current) drug therapy